=== PATIENT | female | born 1940 | race Caucasian/White ===

== ENCOUNTER 2020-07-12 11:09 | Outpatient (RCR) | payer MEDICARE, SELFPAY | END 2020-07-12 23:59 | LOC: IMMUN 11:09 | PROVIDERS: Visit Provider Family Medicine | DX: Z23 Encounter for immunization (principal) | CPT/HCPCS: 0011A; 0012A; 91301 ==

== ENCOUNTER 2023-10-01 12:44 | Emergency (ER) | payer MEDICARE, SELFPAY ==
[2023-10-01 12:45] VITALS: BP 158/97; PULSE 110; RESP 17; TEMP 36.3; O2SAT 96; BMI 37.3
--- NOTE | 2023-10-01 12:57 | CT_ITS ---
STUDY: CT BRAIN WITHOUT CONTRAST REASON FOR EXAM: Female, 83 years old. Trauma RADIATION DOSAGE (If Supplied By Facility): CTDIvol = ( 47.06 ) mGy, DLP = ( 872.68 ) mGycm TECHNIQUE: Transaxial CT imaging of the brain was performed without administration of intravenous contrast material. Individualized dose optimization techniques were used for this CT. COMPARISON: No relevant priors. FINDINGS: Normal soft tissue structures. There is hyperostosis frontalis internus. There is mild cerebral atrophy with widening of the extra-axial spaces and ventricular dilatation. Normal white matter tracts of the cerebral hemispheres. 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 Normal brainstem. Normal cerebellum. There is no intracranial hemorrhage. There are no findings of an acute ischemic infarction. Atherosclerotic plaque formation of the cavernous portions of the internal carotid arteries bilaterally. Normal visualized paranasal sinuses. CT/Brain/Head without Contrast IMPRESSION: Chronic involutional changes of the brain. Electronically Signed: Hilton Cyr MD at 13:39 EDT ,
--- NOTE | 2023-10-01 12:57 | CT_ITS ---
STUDY: CT CERVICAL SPINE WITHOUT CONTRAST REASON FOR EXAM: Female, 83 years old. Trauma RADIATION DOSAGE (If Supplied By Facility): CTDIvol = ( 21.45 ) mGy, DLP = ( 440.10 ) mGycm TECHNIQUE: High resolution transaxial imaging was performed without contrast material. Sagittal and coronal images were reconstructed. Individualized dose optimization techniques were used for this CT. COMPARISON: None FINDINGS: Normal craniovertebral junction. There are degenerative changes of the anterior atlantoaxial articulation. Normal odontoid process. There is straightening of the normal cervical lordosis. Normal vertebral bodies and posterior osseous elements. C2-3: Facet joint osteoarthritis and hypertrophy. No significant stenosis is seen. C3-4: Mild degree of disc space narrowing. Facet joint osteoarthritis and hypertrophy worse on the left side. Mild degree of left neural foraminal stenosis. C4-5: Moderate degree of disc space narrowing. Spondylosis. Uncovertebral arthrosis. Facet joint osteoarthritis more prominent on the left side. Left neural foraminal stenosis. C5-6: Marked degree of disc space narrowing and spondylosis. Uncovertebral arthrosis. Mild bilateral neural foraminal stenosis. C6-7: Mild degree of disc space narrowing with spondylosis and uncovertebral arthrosis. Bilateral facet joint hypertrophy in keeping with bilateral stenosis. C7-T1: Normal endplates. Normal disc height and morphology. Normal central canal and intervertebral neuroforamina. Atherosclerotic plaque formation of the carotid bifurcations. CT/Spine Cervical without Contras IMPRESSION: Multilevel degenerative changes, as described above. Electronically Signed: Hilton Cyr MD at 14:01 EDT ,
--- NOTE | 2023-10-01 12:57 | RAD_ITS ---
STUDY: X-RAY - PELVIS AND LEFT HIP REASON FOR EXAM: Female, 83 years old. Left hip pain following injury. TECHNIQUE: 3 views of the pelvis and hip. COMPARISON: Comparison is made with prior study dated March 31, 2005. 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 Electronically Signed: Hilton Cyr MD at 13:37 EDT ,
--- NOTE | 2023-10-01 12:58 | EDS_ITS ---
HPI History of Present Illness Chief Complaint: Fall Informant: patient Onset/Context/Timing Onset: Today Narrative Narrative: Patient presents via EMS secondary to a fall at home. She states that she was coming out of her house into her garage when she put her hand on her car to steady herself. The car was wet causing her hand to slip and she fell backwards striking the cement. She did strike her head but did not lose consciousness. She denies headache or neck pain at this time. She is not on anticoagulants. She also complains of mild pain at the left hip. She has had prior hip replacement. PFSH PFSH Allergy/AdvReac Type Severity Reaction Status Date / Time No Known Allergies Allergy Verified 10/01/23 12:48 Surgical History H/O bilateral hip replacements History of cataract surgery Social History Smoking Status: Never smoker ROS ROS ED Constitutional Constitutional ED: Denies chills or fever(s) Eyes Eyes: Denies change in vision or discharge from eye(s) ENT ENT ED: Denies discharge from eye(s), rhinorrhea or sore throat Cardiovascular Cardiovascular: Denies chest pain Respiratory/Chest Respiratory/Chest: Denies cough or dyspnea Gastrointestinal Gastrointestinal: Denies abdominal pain, nausea or vomiting Musculoskeletal Musculoskeletal: Reports extremity pain; Denies back pain Integumentary Reports Abrasions; Denies rash Neurologic Neurologic: Denies headache(s) or weakness Psychiatric Psychiatric: Denies anxiety or depression Allergic/Immunologic Allergic/Immunologic ED: Denies lip swelling or urticaria EXAM Physical Exam Const Vital Signs: 10/01/23 12:45 10/01/23 13:04 10/01/23 14:45 Temperature 97.4 F L Temperature Source Temporal Pulse Rate 110 H 100 Respiratory Rate 17 18 Respiratory Effort Normal Respiratory Depth Normal Respiratory Pattern Normal Blood Pressure 158/97 H 186/91 H Blood Pressure Mean 117 122 Pulse Ox 96 96 Oxygen Delivery Method Room Air Room Air Room Air Positive well nourished and well developed General Appearance ED: well developed HEENT Reports moist mucous membranes Eyes EOMs intact bilaterally Neck Neck Narrative: No C-spine tenderness to palpation. Chest Wall inspection of chest normal and palpation of chest normal Resp normal respiratory effort and clear to auscultation bilaterally Cardio regular rate and regular rhythm GI non-tender Palpation: soft Extremity Extremity Narrative: Equal leg lengths noted bilaterally. No pain with logroll of either leg. Small abrasions noted to the lateral malleolus of the left ankle. Neuro oriented x3 and no sensory deficits noted Motor Exam: strength 5/5 throughout Psych mental status grossly normal Skin Skin Narrative: Abrasions to ankle as noted above. MDM MDM MDM Narrative Medical decision making narrative: Patient sent for CT imaging of the head and C-spine to evaluate for any acute intracranial injury, fracture, bleed, edema. Hip and pelvis x-rays obtained to evaluate for potential fracture. Radiography Diagnostic Testing: Clinical Impression(s) from Imaging Studies Brain CT 10/01/23 12:57 IMPRESSION: Chronic involutional changes of the brain. Electronically Signed: Hilton Cyr MD at 13:39 EDT , Cervical Spine CT 10/01/23 12:57 IMPRESSION: Multilevel degenerative changes, as described above. 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 Electronically Signed: Hilton Cyr MD at 13:37 EDT , Treatment and Re-Evaluation :: CT scan of the head reveals chronic involutional changes. CT of the C-spine reveals multilevel degenerative changes. Pelvis and left hip x-rays per my interpretation reveal history of hip replacements with no acute findings. Radiology interpretation is reviewed. They do feel that she may have had superior migration of the left prosthesis. Old x-rays to compare to are from 2004. Dr. Hardin was contacted and he reviewed the images. He states if anything it looks more like wear and tear from her prior surgery and not something acutely related to trauma. Test results are discussed with the patient. I advised her she continues to have left hip pain she needs to follow- up with orthopedics to have the hardware reevaluated. Patient was able to get up and ambulate with a walker and did quite well per nursing report. Patient will take Tylenol at home for pain. Return instructio ns provided. Discharge Plan Triage Chief Complaint: Fall ED Provider: Katie Mcqueen Dx/Rx/DC Orders Clinical Impression: Closed head injury, Fall, Contusion of hip, left Instructions: ED Mechanical Fall, ED Head Injury (Adult), ED Hip Contusion Primary Care Provider: Care Physician,No Primary Referrals: Boni Hardin DO [Med Staff - Active Staff] - As Needed Care Physician,No Primary [Primary Care Provider] - Disposition Disposition: Home, Self Care
[2023-10-01 14:45] VITALS: BP 186/91; PULSE 100; RESP 18; O2SAT 96
[2023-10-01] MEDS: Acetaminophen 325 MG Tablet 650 MG PO (15:12)
== END 2023-10-01 15:25 | disposition home or self-care (01) ==
PROVIDERS: Emergency Provider Emergency Medicine; Visit Provider Emergency Medicine
DX: S09.90XA Unspecified injury of head, initial encounter (principal); S70.02XA Contusion of left hip, initial encounter; S90.512A Abrasion, left ankle, initial encounter; W01.198A Fall on same level from slipping, tripping and stumbling with subsequent striking against other object, initial encounter; Y92.015 Private garage of single-family (private) house as the place of occurrence of the external cause; Z96.643 Presence of artificial hip joint, bilateral
CPT/HCPCS: 70450; 72125; 73502; 99282